=== PATIENT | female | born 1955 | race Caucasian/White ===

== ENCOUNTER 2018-01-16 06:52 | Inpatient (IN) | payer BC ==
--- NOTE | 2018-01-03 16:00 | HP ---
AMENDED REPORT NOW INCLUDES COSIGNER DESIGNATION - ESIGNED BEFORE ADJUSTMENTS HISTORY AND PHYSICAL: DATE OF ADMISSION/SURGERY: 01/16/18 DATE OF HISTORY AND PHYSICAL: 01/03/18 SURGEON: Dr. Johana Bennett.* (DICTATED BY [place] WHYTE) PROCEDURE: Left total knee replacement. CHIEF COMPLAINT: Bilateral knee pain, left greater than right. HISTORY OF PRESENT ILLNESS: Ms. Waters is a 62-year-old female with bilateral knee pain over the last several years, left greater than right pain. This is 5/ 10 aching pain along her joint line. She has tried [id number] NSAIDs, Tylenol, physical therapy and steroid injections with minimal relief of pain. She can no longer walk half a block without severe knee pain. She also reports mild bilateral hip pain today. She also has difficulty with stair climbing and standing from the seated position and due to this at her last appointment she discussed proceeding with a left total knee replacement and she presents today for history and physical for the same. She has had medical clearance by her primary care physician, Miesha Mg, on . She denies any history of herself or immediate family of DVT or PE. She has no history of problems with anesthesia. PAST MEDICAL HISTORY: Includes skin cancer as well as asthma. PAST SURGICAL HISTORY: Left ACL repair, carpal tunnel release of the left metacarpophalangeal surgery, and rhinoplasty. MEDICATIONS: 1. Ibuprofen. 2. Vitamin D. 3. Probiotic. 4. Vitamin C. ALLERGIES: To PENICILLIN. FAMILY MEDICAL HISTORY: Includes CVD, stroke, breast cancer, and asthma. SOCIAL HISTORY: She is a former smoker who stopped 15 years ago, prior to that she had a 30-pack year history. Alcohol, denies. Denies illicit drug use. REVIEW OF SYSTEMS: Positive for presenting complaints as outlined in the HPI as well as the ability to walk a flight of stairs or a city block without chest pain or shortness of breath. Otherwise, a 14-point system review was negative. PHYSICAL EXAMINATION GENERAL: Well-nourished, well-developed 62-year-old female, in no acute distress. Alert and oriented x3 with no gross neurologic deficiencies, ambulating with an antalgic gait favoring the left knee though this is a slowed gait bilaterally. VITAL SIGNS: Height 66 inches, weight 167 pounds, pulse 72, blood pressure 126/ 74, BMI 27. HEENT: Normocephalic, atraumatic. Pupils equally round and reactive to light. Extraocular movements intact. NECK: Supple. No palpable cervical lymph nodes. Her thyroid is smooth and nontender. PULMONARY: Lungs clear to auscultation bilaterally with no wheezes, rales, or rhonchi. CARDIAC: Regular rate and rhythm. No murmurs, rubs, gallops. No pedal edema. MUSCULOSKELETAL: Left lower extremity, skin of left knee is intact with no abrasions or wounds. Moderate to large effusion at the knee joint with tenderness along the medial and lateral joint lines. Range of motion is 15 to 125 degrees of flexion at the knee. No varus or valgus instability. 5/5 ankle dorsiflexion and plantarflexion strength. Full sensation to light touch in all nerve distributions. 2+ palpable DP pulse. IMAGING: Previous views of the left knee show severe end-stage arthritis with medial jzpl-dt-vtkz contact, tricompartmental joint space narrowing, osteophyte formation and subchondral sclerosis. The left knee also shows ACL screws in both the femur and tibia. IMPRESSION: Bilateral knee osteoarthritis. PLAN: Ms. Waters is scheduled to undergo left total knee replacement with Dr. Johana Bennett on 01/16/18. She will return to clinic 10 to 14 days postop for followup and suture removal. Prescription for pain medication as well as Coumadin will be prescribed to the patient's pharmacy of record on discharge from hospital. All questions were answered today. [place] WHYTE [id number]/[facility] #: [id number] CHUCHO
[~2018-01-16 06:52] MED LIST: Acetaminophen IV 1GM/100ML * 1,000 MG/100 ML VIAL IVPB ONE; Buffered Lidocaine 0.9% SYRIN* 5 ML/SYR SYRINGE INTRADERM ONE; Dexamethasone IV* 4 MG/ML 1 ML (4 MG) IV SLOW PU ONE; Famotidine IV* 10 MG/ML 2 ML (20 mg) IV ONE; Gabapentin CAP(*) 300 MG PO ONE; Ondansetron ODT TAB* 4 MG PO ONE; celeCOXIB CAP* 200 MG PO ONE
--- OUTSIDE RECORDS SUMMARY | 2018-01-16 06:58 | XMS REPORT ---
:1955 External Reference #:[id number] Author Organization [facility] Address [address] [address] Phone [phone] Care Team Providers Name Role Phone Miesha Mg PA Primary Care Physician Unavailable Payers Type Date Identification Numbers Payment Provider Subscriber Workers Compensation Expires: Policy Number: State Insurance Mine Waters 2015 [id number] Fund Onset: 2010 PayID: [id number] [address] [address] [place] [address] Medigap Part B Policy Number: [id number] [facility] Mine Waters PayID: [id number] [address] [place] [address] Problems Date Description Provider Status Onset: 11/18/2017 Localized, primary osteoarthritis Johana Bennett M.D. Active Family History Date Family Member(s) Problem(s) Comments General Heart Disease General Diabetes General Cancer Social History Type Date Description Comments Occupation [employer] Use Denies alcohol use Smoking Patient has never smoked Exercise Type/Frequency Exercises regularly Allergies, Adverse Reactions, Alerts Date Description Reaction Status Severity Comments 10/05/2015 Penicillin active Medications Medication Date Status Form Strength Qnty SIG Indications Ordering Provider Ibuprofen 00/00/ Active Unknown 0000 Vitamin D 00/00/ Active Unknown 0000 Probiotic 00/ Active Unknown 0000 Vitamin C 00/ Active Unknown 0000 Cyclobenzaprine 11/18/ Hx Tablets 10mg 30tabs 1 tablet M25.551 Johana HCL 2018 - by mouth Philipp Bennett 01/02/ qhs as 2018 needed muscle spasms [place] 04/30/ Hx Tablets 5-325mg 40tabs one to Chelsey 2016 - two tabema Sagastume M.D. 05/29/ by mouth 2015 every 4-6 hours as needed pain Symbicort / Hx Aerosol 80-4.5mcg/ 2 puff Unknown 0000 - Act twice a 2017 Proair HFA / Hx Aerosol 108(90Base 2 puffs Unknown 0000 - ) mcg/Act by mouth every 4 2018 hours as needed Medications Administered in Office Medication Date Status Form Strength Qnty SIG Indications Ordering Provider Depomedrol Administered Injection Viv 40MG 016 Manpreet RPAMessi Depomedrol Administered Injection Chelsey 40MG 016 Philipp Sagastume Depomedrol Administered Injection Thomas Young, 80MG 011 TiffanyDAdriana Vital Signs Date Vital Result Comment 01/03/2018 Height 66 inches 5'6" Weight 167.00 lb Heart Rate 72 /min BP Systolic 126 mmHg BP Diastolic 74 mmHg BMI (Body Mass Index) 27.0 kg/m2 11/18/2017 Height 66 inches 5'6" Weight 164.00 lb BP Systolic 140 mmHg BP Diastolic 82 mmHg Body Temperature 97.7 F BMI (Body Mass Index) 26.5 kg/m2 06/28/2016 Height 66 inches 5'6" Weight 162.00 lb Pain Level 0 BMI (Body Mass Index) 26.1 kg/m2 05/30/2016 Height 66 inches 5'6" Weight 162.00 lb Pain Level 0 BMI (Body Mass Index) 26.1 kg/m2 04/30/2016 Height 66 inches 5'6" Weight 162.00 lb Heart Rate 80 /min BP Systolic 122 mmHg BP Diastolic 80 mmHg Body Temperature 97.9 F Pain Level 3 BMI (Body Mass Index) 26.1 kg/m2 04/04/2016 Height 66 inches 5'6" Weight 156.00 lb Heart Rate 73 /min BP Systolic 140 mmHg BP Diastolic 76 mmHg BMI (Body Mass Index) 25.2 kg/m2 10/05/2015 Height 66 inches 5'6" Weight 151.00 lb Heart Rate 72 /min BP Systolic Sitting 120 mmHg BP Diastolic Sitting 78 mmHg BMI (Body Mass Index) 24.4 kg/m2 Results Test Date Test Result H/L Range Note Laboratory test 05/18/2016 Surgical Pathology SEE RESULT BELOW 1, 2 finding 1 [id number] 2 SEE RESULT BELOW Name: MINE WATERS : [address]: Chelsey Sagastume MD Acct: [id number] Unit: [id number] AGE: 61 Location: [facility] Re05/18/16 SEX: F Status: REG [facility] SPEC: [id number] GEM: 05/18/[address] [facility] [address]: Chelsey Sagastume MD REQ: [id number] RECD: 05/18/16 STATUS: SOUT _ ORDERED: Rafa, LEVEL III COMMENTS: [id number] FINAL DIAGNOSIS Trapezium, right wrist, excision: -- Benign bone and cartilage with reactive and degenerative change. PRE-OPERATIVE DIAGNOSIS Right thumb carpometacarpal arthritis. GROSS DESCRIPTION The specimen is received in formalin labeled, Trapezium Right Wrist, and consists of a 3.2 x 2.5 x 0.9 cm aggregate of giraldo-white irregular bone fragments. A few of the fragments are partially surfaced by a glistening smooth articular surface. Professor Of Communication sections, one cassette following decalcification. MICROSCOPIC DESCRIPTION Signed (signature on file) Deanna De La Torre MD 1116 END OF REPORT * ML=Testing performed at Main Lab DEPARTMENT OF PATHOLOGY, [address] [place] [address] Hermes Phillip M.D. Director [facility] # [id number] Procedures Date CPT Code Description Status 05/18/2016 83275 Arthroplasty Interposition Intercarpal Or Completed Carpometacarpal JTS 05/18/2016 43646 Arthroplasty Interposition Intercarpal Or Completed Carpometacarpal JTS 04/04/2016 06901 Inject/Drain Joint/Bursa Small Completed 10/05/2015 30101 Inject/Drain Joint/Bursa Small Completed 02/07/2011 56916 Inject Tendon Sheath Or Ligament Aponeurosis Eg Plantar Completed Fascia Encounters Type Date Location Provider CPT E/M Dx Office Visit 11/18/2017 [facility] Johana Bennett M.D. 92142 M25.551 8:45a Of [place] M25.561 M25.562 M17.0 Office Visit 04/04/2016 3:00p [facility] Of [place], 98482 M18.11 [facility]- M79.644 Office Visit 10/05/2015 10:30a [facility] Chelsey Sagastume, 98642 M18.11 Of [facility] [place] Philipp Office Visit 04/18/2011 11:45a [facility] Thomas Newton M.D. 25322 726.0 [facility] Office Visit 03/07/2011 9:45a [facility] Thomas Newton M.D. 21477 726.10 Of [facility] Office Visit 02/07/2011 10:15a [facility] Thomas Newton M.D. 35635 726.12 [facility] Plan of Care Future Appointment(s):01/16/2018 9:30 am - Antoni Sharma PA-C at [facility].01/16/2018 9:30 am - [place] Mitchell at [facility].01/16/2018 9:30 am - Johana Bennett M.D. at [facility].01/27/2018 1:00 pm - Johana Bennett M.D. at [facility].01/03/2018 - Johana Bennett M.D.M25.562 Pain in left kneeFollow up:Follow up: 2 weeks after kuvqszmQ39.0 Bilateral primary osteoarthritis of knee
--- OUTSIDE RECORDS SUMMARY | 2018-01-16 06:59 | XMS REPORT ---
:1955 External Reference #:[id number] Author Organization [facility] Address [address], [address] [place] [address] Phone [phone] Care Team Providers Name Role Phone Miesha Mg PA Care Team Information Floor Coverings Salesperson Unavailable Miesha Mg PA Primary Care Physician Unavailable Payers Type Date Identification Numbers Payment Provider Subscriber Commercial Policy Number: [id number] [facility] [place] PayID: [id number] [address] [place] [address] Problems Date Description Provider Status Onset: 08/03/2003 Localized, primary osteoarthritis Active Onset: 08/03/2003 Chondromalacia of patella Active Family History Date Family Member(s) Problem(s) Comments General Non Contributory : (age 60 Years) Father due to Heart Attack : (age 86 Years) Mother due to Dementia Social History Type Date Description Comments Marital Status Single Lives With Alone Home Environment Lives Alone Diet Healthy, Well Balanced Occupation Retired Occupation Clerical Work Status Retired ADL's/IADL's Independent with all ADL's Cigarette Use Quit Smokeless Tobacco Never Used Smokeless Tobacco ETOH Use Denies alcohol use Smoking Patient is a former smoker 30 pack years QUIT 2006 Recreational Drug Use Denies Drug Use Daily Caffeine Current Caffeine User Daily Caffeine Consumes on average 4 cups of regular coffee per day Allergies, Adverse Reactions, Alerts Date Description Reaction Status Severity Comments 11/19/2013 Penicillins active Medications Medication Date Status Form Strength Qnty SIG Indications Ordering Provider Vitamin C 12/20/ Active 1 po daily [facility] Chewables Conrad Hollingsworth M.D. Ibuprofen 200 05/31/ Active Tablets 200mg 3 po Am, 2 Other 2017 po Provider afternoon Vitamin D 05/31/ Active Tablets 1000Unit 1 by mouth Other 2017 every day Provider Probiotic 05/31/ Active Capsules 30cap 1 by mouth Other 2017 s every day Provider Preparation H 07/11/ Hx Cream 1% 26gm 1tube K64.9 Garry Hydrocortisone 2017 - apply Jodi 12/20/ MD elmo 2018 amount to rectum twice a day Nulytely With 07/11/ Hx Solution 420gm 4000m 1 dose R19.5 Garry Flavor Packs 2017 - Rec l mixed with Jodi 12/20/ water MD 2018 Citrate Of 07/11/ Hx Solution 1.745GM/30 296ml 1 bottle R19.5 Garry Magnesia 2016 - ML at 1pm day Jodi 12/20/ before MD 2018 procedure Dulcolax 07/11/ Hx Tablets DR 5mg 4tabs 4 tablets R19.5 Garry 2017 - taken a Jodi 12/20/ 8pm the MD 2018 day before the procedure Diclofenac 06/17/ Hx Gel 3% 100gm apply to Caprice Sodium 2017 - affected Philipp Hollingsworth 12/20/ area twice 2017 a day Tylenol Extra 05/31/ Hx Tablets 500mg 1 tab by M25.551 Caprice Strength 2017 - mouth Philipp Hollingsworth 07/01/ every 6 2017 hours as needed Meloxicam 04/27/ Hx Tablets 15mg 30tab 1 by mouth Tip 2013 - s every day Juan, 09/19/ kerrie olson M.D. 2016 Ibuprofen 11/04/ Hx Tablets 800mg 270ta 1 by mouth Rich 2011 - bs higinio Wylie MD 06/21/ times a 2014 day after meals Ibuprofen / Hx Tablets 800mg 270ta 1 po tid Geovanni Posey 0000 - bs angela Dawn, 04/27/ Philipp, 2013 FACS Asmanex 60 / Hx Aerosol 220mcg/Inh Unknown Metered Doses - 2014 Ventolin HFA / Hx Aerosol 108(90Base prn Unknown 0000 - ) mcg/Act 2014 Pulmicort / Hx Aerosol 90mcg/Act Unknown Flexhaler - 2014 Tylenol / Hx Tablets 325mg 2 by mouth Unknown 0000 - every 4 05/31/ hours as 2017 needed Medications Administered in Office Medication Date Status Form Strength Qnty SIG Indications Ordering Provider Depomedrol 80 Administered Injection Juliana S. mg 016 [place], [facility] Depomedrol Administered Injection Juliana S. 40mg/1cc 016 [place], [facility] Depo-Medrol Administered Injection Juliana S. 20mg 015 [place], [facility] Depomedrol 80 Administered Injection Juliana S. mg 015 [place], [facility] Euflexxa 2mL Administered Injection Juliana S. prefilled 014 [place], syringe [facility] Euflexxa 2mL Administered Injection Juliana S. prefilled 014 [place], syringe [facility] Euflexxa 2mL Administered Injection Juliana S. prefilled 014 [place], syringe [facility] Depomedrol 80 Administered Injection Juliana S. mg 014 [place], [facility] Immunizations CPT Code Status Date Vaccine Lot # 29073 Given 05/31/2017 Influenza Virus Vaccine Quadrivalent Iiv4 Split Preser Free Id U-Td Given 11/10/2013 Td(Adult),Unspecified U-PneuC Given 05/28/2008 Pneumococcal Conj,Unspecified Vital Signs Date Vital Result Comment 12/20/2017 BP Systolic Sitting Right Arm 138 mmHg BP Diastolic Sitting Right Arm 80 mmHg Body Temperature 98.1 F Heart Rate 72 /min Height 66 inches 5'6" Weight 167.12 lb BMI (Body Mass Index) 27.0 kg/m2 BSA (Body Surface Area) 1.85 m2 [place] body weight in kilograms 59 O2 Saturation Level with Exercise 96 % 07/11/2017 BP Systolic Sitting Left Arm 124 mmHg BP Diastolic Sitting Left Arm 82 mmHg Heart Rate 66 /min Respiratory Rate 16 /min Height 66.5 inches 5'6.50" Weight 165.00 lb BMI (Body Mass Index) 26.2 kg/m2 BSA (Body Surface Area) 1.85 m2 [place] body weight in kilograms 60 07/01/2017 BP Systolic 138 mmHg BP Diastolic 80 mmHg Body Temperature 98.4 F Heart Rate 79 /min Height 66.5 inches 5'6.50" Weight 163.00 lb BMI (Body Mass Index) 25.9 kg/m2 BSA (Body Surface Area) 1.84 m2 [place] body weight in kilograms 60 05/31/2017 BP Systolic 172 mmHg BP Diastolic 96 mmHg BP Systolic Sitting Right Arm 152 mmHg repeat BP Diastolic Sitting Right Arm 90 mmHg repeat Heart Rate 80 /min Height 66.5 inches 5'6.50" Weight 162.25 lb BMI (Body Mass Index) 25.8 kg/m2 BSA (Body Surface Area) 1.84 m2 [place] body weight in kilograms 60 06/21/2015 BP Systolic Sitting Left Arm 142 mmHg BP Diastolic Sitting Left Arm 81 mmHg Heart Rate 69 /min Height 66.5 inches 5'6.50" Weight 152.00 lb BMI (Body Mass Index) 24.2 kg/m2 BSA (Body Surface Area) 1.79 m2 11/19/2013 BP Systolic Sitting Left Arm 98 mmHg BP Diastolic Sitting Left Arm 60 mmHg Height 65 inches 5'5" Weight 155.00 lb BMI (Body Mass Index) 25.8 kg/m2 BSA (Body Surface Area) 1.78 m2 05/14/2012 Height 65 inches 5'5" Weight 161.00 lb 11/05/2011 Height 66 inches 5'6" Weight 170.00 lb 10/09/2010 Height 65.5 inches 5'5.50" Weight 167.00 lb 02/28/2010 Height 68.5 inches 5'8.50" Weight 176.00 lb With Shoes 11/05/2007 Height 66 inches 5'6" Weight 172.00 lb 05/07/2007 Height 67 inches 5'7" Weight 166.00 lb 01/17/2007 Height 66 inches 5'6" Weight 164.00 lb 04/03/2006 Height 66 inches 5'6" Weight 173.00 lb 07/26/2005 Height 66 inches 5'6" Weight 170.00 lb 01/31/2005 Height 66 inches 5'6" Weight 174.00 lb Results Test Date Test Result H/L Range Note HPV High Risk 07/01/2017 HPV High Risk Results on file 1, 2 CBS W/Automated Diff 06/03/2017 White Blood Count 3.1 K/uL 3.1-10.7 3 Red Blood Count 4.31 M/uL 3.90-5.40 3 Hemoglobin 13.8 gm/dL 11.6-15.8 3 Hematocrit 40.3 % 36.0-46.1 3 Mean Cell Volume 93.5 fl 80.9-99.0 3 Mean Corpuscular HGB 32.0 pg 25.9-32.7 3 Mean Corpuscular HGB Conc 34.2 g/dL 30.8-34.3 3 Platelet Count 204 K/uL 150-400 3 Red Cell Distri Width SD 41.2 fl 3-47 3 Red Cell Distri Width %CV 12.3 % 11.7-14.4 3 Mean Platelet Volume 11.1 fL 8.9-12.4 3 Neut% 38.0 % Low 40.4-72.8 3 Lymph % 44.2 % High 20.0-42.0 3 [place] % 14.6 % High 4.3-13.2 3 Eo% 2.9 % 0.0-6.6 3 Bas% 0.3 % 0.0-1.1 3 Neut# 1.17 K/uL Low 1.8-7.0 3 Lymph # 1.36 K/uL 1.0-4.0 3 [place] # 0.45 K/uL 0.3-0.9 3 Eos # 0.09 K/uL 0.0-0.5 3 Baso # 0.01 K/uL 0.0-0.1 3 LDL Cholesterol Profile 06/03/2017 Cholesterol 241 mg/dL High <200 3, 4 Triglycerides 92 mg/dL <150 3, 5 HDL Cholesterol 102 mg/dL >40 3, 6 LDL-Cholesterol 121 mg/dL < 100 3, 7 Reflex add FT3? N 3 Reflex add FT4? Y 3 TSH Reflex FT4 And/Or 06/03/2017 Thyroid Stim Hormone 7.50 uIU/mL High 0.30-4.20 3 FT3 Reflex add FT3? N 3 Reflex add FT4? Y 3 Comprehensive Metabolic Panel 06/03/2017 Glucose 79 mg/dL 74-106 3 BUN 16 mg/dL 7-18 3 Creatinine 0.7 mg/dL 0.6-1.3 3 Glom Filtration Rate, Estimate >60 mL/min >60 3 If >60 mL/min >60 3, 8 BUN/Creat 22.8 ratio 3 Sodium 141 mmol/L 136-145 3 Potassium 4.0 mmol/L 3.5-5.1 3 Chloride 107 mmol/L 98-107 3 Carbon Dioxide 29 mmol/L 21-32 3 Anion Gap 5 mEq/L Low 8-16 3 Calcium 9.3 mg/dL 8.5-10.1 3 Total Protein 7.4 g/dL 6.4-8.2 3 Albumin 3.9 g/dL 3.4-5.0 3 Globulin 3.5 g/dL 1.9-4.3 3 Alb/Glob 1.1 ratio 3 Bilirubin,Total 0.4 mg/dL 0.2-1.0 3 Sgot/Ast 20 U/L 15-37 3 SGPT/Alt 24 U/L 12-78 3 Alkaline Phosphatase 61 U/L 45-117 3 Reflex add FT3? N 3 Reflex add FT4? Y 3 Free T4 06/03/2017 Free T4 0.97 ng/dL 0.76-1.46 3 Reflex add FT3? N 3 Reflex add FT4? Y 3 BUN And Creatinine 08/30/2006 BUN 18 mg/dL 5-23 Creatinine 1.0 mg/dL 0.5-1.4 Laboratory test finding 08/30/2006 Albumin 4.3 g/dL 3.5-5.0 Alkaline Phosphatase 57 U/L 50-136 Bilirubin,Direct 0.1 mg/dL 0.1-0.4 Bilirubin,Indirect 0.3 mg/dL 0.0-0.9 Bilirubin,Total 0.4 mg/dL 0.2-1.2 SGPT/Alt 42 U/L 30-65 Sgot/Ast 24 U/L 16-40 Total Protein 7.6 g/dL 6.3-8.0 Urine Screen 05/22/2006 Urine Bilirubin - Dipstick Negative Negative Urine Blood Negative Negative Urine Clarity Clear Clear Urine Color Yellow Yellow Urine Glucose - Dipstick Negative Negative m Urine Ketone Negative Negative m Urine Leuk Esterase Negative Negative Urine Nitrite - Dipstick Negative Negative Urine PH 6.5 6.5-7.5 Urine Protein - Dipstick Negative Negative m Urine Specific [place] 1.010 1.010-1.030 Urine Urobilinogen - Dipstick 0.2 E.U./dL 0.2-1.0 Laboratory test finding 05/22/2006 Bas% 0.6 % 0.1-1.0 Baso # 0.0 K/uL Low 0.1-0.2 Eo% 2.5 % 0.0-5.0 Eos # 0.1 K/uL 0.0-0.5 Hematocrit 41.3 % 34.0-46.0 Hemoglobin 14.5 gm/dL 11.5-15.5 Bj# 0.1 0.0-1.5 Bj% 2.3 % 0.0-4.0 Lymph # 2.0 K/uL 1.2-4.0 Lymph % 36.9 % 17.0-56.0 Mean Cell Volume 91.8 fL 80.0-96.0 Mean Corpuscular HGB 32.2 pg 27.0-33.0 Mean Corpuscular HGB Conc 35.1 g/dL 31.7-36.0 Mean Platelet Volume 7.8 fl 6.6-10.6 [place] # 0.3 K/uL 0.0-0.6 [place] % 4.9 % 0.0-10.0 Neut# 2.9 K/uL 1.8-7.0 Neut% 52.8 % 33.0-73.0 Platelet Count 326 K/uL 150-400 Red Blood Count 4.50 M/uL 3.90-5.20 Red Cell Distri Width %CV 12.6 % 11.6-15.8 White Blood Count 5.5 K/uL 3.4-10.5 BUN And Creatinine 03/05/2006 BUN 14 mg/dL 5-23 9 Creatinine 0.9 mg/dL 0.5-1.4 9 Laboratory test finding 03/05/2006 Albumin 3.8 g/dL 3.5-5.0 9 Alkaline Phosphatase 50 U/L 50-136 9 Bilirubin,Direct 0.1 mg/dL 0.1-0.4 9 Bilirubin,Indirect 0.2 mg/dL 0.0-0.9 9 Bilirubin,Total 0.3 mg/dL 0.2-1.2 9 SGPT/Alt 36 U/L 30-65 9 Sgot/Ast 19 U/L 16-40 9 Total Protein 7.0 g/dL 6.3-8.0 9 1 Z12.4 2 Hard copy of report to be sent by mail Report may be viewed in Clinical Review, or in PCI under Medical Record Forms 3 Z47.123 4 Reference Guidelines*: Desirable: ........... < 200 mg/dL Borderline High: ..... 200-239 mg/dL High: ................ >=240 mg/dL * The National Cholesterol Education Program (NCEP) 5 Reference Guidelines*: Normal: ............. < 150 mg/dL Borderline High: .... 150-199 mg/dL High: ............... 200-499 mg/dL Very High: .......... > 500 mg/dL * Source: National Cholesterol Education Program (NCEP) 6 Reference Guidelines*: Low HDL: ..... < 40 mg/dL Normal: ..... 40-60 mg/dL Desirable: ... > 60 mg/dL *The National Cholesterol Education Program(NCEP) 7 Reference Guidelines*: Optimal:........... <100 mg/dL Near Optimal....... 100-129 mg/dL Borderline High.... 130-159 mg/dL High............... 160-189 mg/dL Very High.......... >=190 mg/dL * Source: National Cholesterol Education Program (NCEP) 8 Note: Persistent reduction for 3 months or more in an eGFR <60 mL/min/1.73 m2 defines CKD. Patients with eGFR values >/=60 mL/min/1.73 m2 may also have CKD if evidence of persistent proteinuria is present. The original MDRD equation for estimated GFR is not valid for patients less than 18 years of age. Additional information may be found at www.kdoqi.org. 9 spoke with pt 03/07 ds Procedures Date CPT Code Description Status Comment 12/04/2017 Bone Mineral Density Test Completed Osteopenia-Repeat 2 years in 201907/29/2017 91149 Colonoscopy Completed 07/17/2016 Mammogram Completed Birads 2-Benign 11/27 Birads 2-Benign, Dense. Repeat in 12 months. 06/25/2016 Asp./Injection major joint Completed 06/25/2016 Asp./Injection major joint Completed 06/25/2016 30881 Radiology, Both Knees Completed Standing 06/25/2016 00185 Radiology, Both Knees Completed Standing 06/25/2016 93437 Radiology, Distal Completed Femur--Knee 1 Or 2 Views 06/25/2016 75351 Radiology, Distal Completed Femur--Knee 1 Or 2 Views 09/19/2015 69483 Radiology, Hand: Minimum Completed Three Views 06/21/2015 80692 Radiology, Finger(S), Two Completed Views 06/21/2015 90335 Radiology, Finger(S), Two Completed Views 06/21/2015 44285 Aspiration/Injection joint Completed intermediate(wrist/ankle/elb ow/olbursa 10/28/201435226 Asp./Injection major joint Completed 10/28/2014 Asp./Injection major joint Completed 05/18/2014 Asp./Injection major joint Completed 05/12/2014 Asp./Injection major joint Completed 05/05/2014 Asp./Injection major joint Completed 04/27/2014 11744 Radiology, Knee 3 Views Completed 04/27/2014 40603 Radiology, Knee 3 Views Completed 11/19/201372181 Asp./Injection major joint Completed 11/19/201326167 Asp./Injection major joint Completed 10/03/2012 Colonoscopy Completed Document: 10/03/12 - Operative Colon & BX Document: 10/03/12 - Colonoscopy Pictures 07/29/2018-Dr. Zapata-Negative. 05/14/2012 Asp./Injection major joint Completed 12/19/2011 Asp./Injection major joint Completed 11/15/2011 Asp./Injection major joint Completed 11/05/2011 Asp./Injection major joint Completed 01/16/2011 Asp./Injection major joint Completed 12/19/2010 Asp./Injection major joint Completed 02/28/2010 Asp./Injection major joint Completed 06/04/2007 0000 Due To Insurance Completed 01/30/2007 Asp./Injection major joint Completed 01/24/2007 Asp./Injection major joint Completed 01/17/2007 Asp./Injection major joint Completed 01/10/2007 Asp./Injection major joint Completed 01/03/2007 Asp./Injection major joint Completed 08/28/2006 Asp./Injection major joint Completed 05/27/2006 45542 Arthroscopic anterior Completed cruciate ligment repair/reconstruct/augment 01/30/2006 Asp/Injection small Completed joint/bursa (ie-fingers,toes) 05/30/2005 Asp/Injection small Completed joint/bursa (ie-fingers,toes) 04/24/2005 Asp/Injection small Completed joint/bursa (ie-fingers,toes) 02/22/2005 Colonoscopy Completed Document: 02/22/05 - Operative Colon 12/13/2004 Asp./Injection major joint Completed 07/18/2004 Aspiration/Injection joint Completed intermediate(wrist/ankle/elb ow/olbursa 12/15/2003 Asp./Injection major joint Completed Encounters Type Date Location Provider CPT E/M Dx Office Visit 07/11/2017 9:[place] [address] R19.5 K64.9 Office Visit 07/01/2017 8:30a [place] [address] Z00.01 M17.0 Z12.31 Z12.4 Z13.820 Z12.11 R03.0 M25.551 Office Visit 05/31/2017 3:15p [place] [address] M25.551 G47.9 Z23 R03.0 Z13.220 Office Visit 06/25/2016 2:45p Orthopaedic Office Juliana [facility] [address]131 M17.0 M25.562 M25.561 Office Visit 09/19/2015 2:00p Orthopaedic Office Mario Schilling M.D. 14768 M19.041 Office Visit 06/21/2015 2:15p Orthopaedic Office [place] [address] M79.641 [facility] M19.041 Office Visit 06/07/2014 9:00a Orthopaedic Office [place] 30503 719.46 RPAC 719.06 715.16 844.2 Office Visit 05/26/2014 3:00p Orthopaedic Office Julinaa [place] 86440 719.46 RPAC 719.06 Office Visit 04/27/2014 1:30p Orthopaedic Office [place] 26906 715.16 RPAC 719.46 Office Visit 06/14/2006 8:40a Operating Room Helder Temple M.D. 87740 238.2 Office Visit 05/24/2006 8:40a Operating Room Helder Temple M.D. 59742 238.2 Plan of Care 12/20/2017 - Miesha Mg PAZ01.818 Encounter for other preprocedural examinationComments:Patient is cleared for procedure. Low risk for general anesthesia.M17.0 Bilateral primary osteoarthritis of kneeComments:Keep as active as you can leading up to surgery. Please call if you have any concerns. Otherwise, wewill follow up in the fall.Follow up:4 gocnxfM67.6 Abnormal results of thyroid function studiesComments:Repeat Thyroid function studies.AllNew Medication:Vitamin C Chewables
[2018-01-16] MEDS ORDERED: Dexamethasone IV* 4 MG/ML 1 ML (4 MG) ONE (07:27)
[2018-01-16] MEDS ORDERED: Famotidine IV* 10 MG/ML 2 ML (20 mg) ONE (07:27)
[2018-01-16] MEDS ORDERED: Gabapentin CAP(*) 300 MG ONE (07:28)
[2018-01-16] MEDS ORDERED: Ondansetron ODT TAB* 4 MG ONE (07:28)
[2018-01-16] MEDS ORDERED: Clindamycin 900 MG IVPREMIX(* 900 MG/50 ML SDV IV ONE (07:28)
[2018-01-16] MEDS ORDERED: celeCOXIB CAP* 100 MG ONE (07:28)
[2018-01-16] MEDS ORDERED: Acetaminophen IV 1GM/100ML * 100 ML ONE (07:42)
[2018-01-16] MEDS ORDERED: Bupivacaine 0.5% PF 10 ML VIAL INJ ONE (08:21)
[2018-01-16] MEDS ORDERED: Phenylephrine INJ* 10 MG/ML 1 ML VIAL (10 MG) ONE (08:21)
[2018-01-16] MEDS ORDERED: Propofol* 10 MG/ML 20 ML BTL IV PUSH ONE ×2 (08:21→10:28)
[2018-01-16] MEDS ORDERED: fentaNYL* 50 MCG/ML 2 ML VIAL (100 MCG VIAL) ONE (08:21)
[2018-01-16] MEDS ORDERED: Midazolam* 1 MG/ML 5 ML VIAL (5 MG) ONE ×2 (08:21→09:27)
[2018-01-16] MEDS ORDERED: Lidocaine 0.5%* 50 ML SDV ONE (08:21)
[2018-01-16] MEDS ORDERED: ROPIVACAINE 5 MG/ML 30 ML BTL (0.5%) ONE (08:42)
[2018-01-16] MEDS ORDERED: Bupivacaine 0.25% SDV* 30 ML ONE (08:52)
[2018-01-16] MEDS ORDERED: Lidocaine 2% PF * 5 ML VIAL ONE (09:28)
[2018-01-16] MEDS ORDERED: HYDROmorphone INJ* 1 MG/ML CARPUJECT SYRINGE IV PRN (09:58)
[2018-01-16] MEDS ORDERED: Ondansetron INJ* 2 MG/ML VIAL IV PRN (09:58)
[2018-01-16] MEDS ORDERED: Naloxone* 0.4 MG/ML 1 ML VIAL IV PRN (09:58)
[2018-01-16] MEDS ORDERED: oxyCODONE/Acetamin 5/325 MG* TAB PO PRN ×2 (09:58→12:21)
[2018-01-16] MEDS ORDERED: DiMENhydriNATE IV* 50 MG/ML VIAL IV PUSH PRN (09:58)
[2018-01-16] MEDS ORDERED: fentaNYL* 50 MCG/ML 2 ML VIAL (100 MCG VIAL) IV PRN (09:58)
[2018-01-16] MEDS ORDERED: diPHENhydraMINE IV* 50 MG/ML 1 ml VIAL (BENADRYL) IV PRN (12:21)
[2018-01-16] MEDS ORDERED: Cyclobenzaprine TAB* 10 MG PO PRN (12:21)
[2018-01-16] MEDS ORDERED: Magnesium Hydroxide LIQ* 30 ML UDC PO PRN (12:21)
[2018-01-16] MEDS ORDERED: Bisacodyl SUPP* 10 MG SUPP PR PRN (12:21)
--- NOTE | 2018-01-16 13:22 | RAD ---
INDICATION: Status post total left knee replacement surgery. TECHNIQUE: 2 views of the left knee were obtained. FINDINGS: The patient is status post total left knee replacement surgery. The bones and prostheses are in normal alignment. There is air within the adjacent soft tissues consistent with the patient's recent surgery. IMPRESSION: STATUS POST TOTAL LEFT KNEE REPLACEMENT SURGERY.
[2018-01-16] MEDS: oxyCODONE/Acetamin 5/325 MG* TAB PO PRN ×2 (15:25→20:52)
[2018-01-16] MEDS ORDERED: Ondansetron 40 MG VIAL* 2 MG/ML 20 ML VIAL IV PRN (16:50)
[2018-01-16] MEDS ORDERED: Warfarin TAB(*) 6 MG PO ONE (17:00)
[2018-01-16] MEDS: Clindamycin 600 MG IVPREMIX(* 600 MG/50 ML SDV IV SCH (18:05)
[2018-01-16] MEDS: oxyCODONE TAB* 5 MG TAB PO PRN ×2 (18:43→22:52)
[2018-01-16] MEDS: Morphine VIAL* 4 MG/ML VIAL (1 ml vial) IV PRN ×2 (19:18→23:55)
[2018-01-16] MEDS: Docusate CAP* 100 MG PO SCH (20:52)
[2018-01-16] MEDS: Magnesium Hydroxide LIQ* 30 ML UDC PO SCH (20:53)
[2018-01-17] MEDS ORDERED: HYDROmorphone INJ* 2 MG/ML CARPUJECT SYRINGE IV PRN (00:29)
[2018-01-17] MEDS: Ketorolac INJ* 15 MG/ML 1 ML VIAL IV PUSH SCH ×4 (00:48→18:34)
[2018-01-17] MEDS: oxyCODONE/Acetamin 5/325 MG* TAB PO PRN ×6 (00:49→22:15)
[2018-01-17] MEDS: Clindamycin 600 MG IVPREMIX(* 600 MG/50 ML SDV IV SCH ×2 (00:50→09:18)
[2018-01-17] MEDS: oxyCODONE TAB* 5 MG TAB PO PRN ×5 (02:51→19:47)
[2018-01-17 05:45] LABS: Hematocrit 29 % (35-47); Hemoglobin 10.2 g/dl (12.0-16.0); Mean Platelet Volume 8.2 um3 (7.4-10.4); Platelet Count 167 10^3/ul (150-450)
[2018-01-17 05:55] LABS: INR 0.91 (0.77-1.02)
[2018-01-17 06:08] LABS: EGFR Non-African American 84.5 (>60)
[2018-01-17] MEDS: Magnesium Hydroxide LIQ* 30 ML UDC PO SCH ×2 (07:12→19:47)
[2018-01-17] MEDS: Docusate CAP* 100 MG PO SCH ×2 (07:12→19:47)
[2018-01-17] MEDS: Vitamin THERAPEUTIC TAB PO SCH (07:12)
[2018-01-17] MEDS: Enoxaparin(*) 30 MG/0.3 ML SYR SUBCUT SCH (13:26)
[2018-01-17] MEDS ORDERED: Warfarin TAB(*) 4 MG PO ONE (17:00)
--- NOTE | 2018-01-17 17:31 | OP ---
OPERATIVE NOTE: DATE OF OPERATION: 01/16/18 DATE OF : 53 ATTENDING SURGEON: Johana Bennett MD. AUTOMATION SALES MANAGER: KY Snyder. Mr. Sharma did help throughout the procedure with preparation of the leg, wound retraction, manipulat ion of the knee, and wound closure. ANESTHESIOLOGIST: Dr. Larsen. ANESTHESIA: Spinal. 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 OPERATIVE PROCEDURE: Left total knee arthroplasty with removal of prior hardware. TOURNIQUET TIME: 58 minutes. COMPLICATIONS: None. SPECIMENS: Bone and cartilage from the left knee joint sent to Pathology as well as 2 metal interfer ence screws, one removed from the femur and one removed from the tibia. ESTIMATED BLOOD LOSS: 300 cc. HARDWARE USED: This is a cemented [employer]hew total knee arthroplasty hardware. Two packages o f Simplex bone cement. For the femur, a left size 5 posterior stabilized Legion Oxinium femoral comp onent. For the tibia, a size 4 left tibial base plate, type Kiara II. For the insert, a 9-mm post erior stabilized articular insert size 3-4. For the patella, a 32-mm 3-peg all poly patella with 7.5 thickness. BRIEF HISTORY/INDICATION: Ms. Waters is a 62-year-old female with a chronic history of left knee thalia n. She did have ACL reconstruction in the past. Over the years, she developed increasingly severe p ain in the left knee. Radiographs showed ypid-sa-raht arthritis. The patient failed conservative tr eatment with antiinflammatories, pain medication, intraarticular injections, and physical therapy. S he elected to undergo left total knee arthroplasty due to continued pain and decreased quality of lif e. Informed consent was obtained from the patient. She understood the risks of surgery included but were not limited to bleeding, infection, damage to nearby structures, continued pain, need for furthe r surgery, intraoperative fracture, nerve palsy, hardware failure or loosening, knee stiffness, loss of motion, stroke, heart attack, blood clot, and . She had a real risk of intraoperative fractu re due to these 2 prior interference screws, as they are placed within the bone. She wished to proce ed and accept these risks. INTRAOPERATIVE FINDINGS: Intraoperatively, the patient was noted to have osteopenia. She had tricom partmental full thickness loss of cartilage and advanced posttraumatic arthritis. The femoral screw was posterior and lateral. This was removed during reaming of the box for the posterior stabilized i mplant. The proximal tibial screw was removed during preparation of the proximal tibia for placement of the implant. No intraoperative periprosthetic fractures were noted. DESCRIPTION OF PROCEDURE: Ms. Waters was identified in the preanesthesia unit. Her left lower extrem ity was marked as the correct operative side. Informed consent was signed and placed in the chart. The patient was taken to the operating room and placed under spinal anesthesia without difficulty. F oley catheter was placed. Tourniquet was placed on the left thigh. Left lower extremity was prepped and draped in the usual sterile fashion. Preop time-out was made to correctly identify the patient's side and site. Appropriate perioperative antibiotics were given within 1 hour of incision. Tourniquet was inflated and total tourniquet time for this procedure was 58 minutes. A 12-cm midline incision was made using the patient's prior distal medial incision. A 10 blade was used to sharply dissect down to the extensor mechanism. A new 10 blade was used to make a standard medial parapatella r arthrotomy. The patella was subluxed laterally. Electrocautery was used to subperiosteally elevat e the soft tissue off the superomedial tibia to the mid sagittal plane. The knee was flexed up. Ther e was no visible ACL. Anterior horn of the lateral meniscus was released. A drill was used to enter the distal femur. Intramedullary distal femoral cutting guide was pinned on the distal femur. Osci llating saw was used to make the distal femoral cut. Next, the external rotation guide was pinned on the distal femur. Distal femur was sized to a size 5. Size 5 multi-cutting jig was pinned on the d istal femur. Oscillating saw was used to make the 4 distal femoral chamfer cuts. Next, the PCL was completely released. Tibia was subluxed anteriorly. Extramedullary tibial cutting guide was pinned on the proximal tibia. Oscillating saw was used to make the proximal tibial cut. T he interference screw was encountered. A screwdriver was used to remove the interference screw from the proximal tibia. The knee was brought out into full extension. Bone was carefully removed. Spac er block had good fit with the knee in full extension. Medial and lateral ligaments were well balanc ed. Flexion and extension gaps were well balanced. The knee was flexed up. Lamina knife sharpener was rosita maggy both medially and laterally. Any remaining meniscus was carefully removed using electrocautery. Curved osteotome was used to remove any posterior osteophytes. Tibial tray and drop erika confirmed a satisfactory tibial cut. Next, the left size 5 femoral trial was impacted onto the distal femur. The box for the posterior st abilized implant was prepared using a reamer and box cut osteotome. During placement of the reamer, the distance was met. At this point, the distal femoral interference screw was identified and remove d using a screwdriver. The size 4 tibial tray trial with a 9-mm insert trial was placed, and the kne e was taken through a range of motion. The knee had full extension to 130 degrees of flexion with sa tisfactory patellofemoral tracking. Patella was everted. 7 mm of patellar bone and cartilage was car efully removed using an oscillating saw. The patella was sized to a size 32. Three peg holes were dr illed to the size 32 guide. A trial 32 patella with 7.5 thickness was placed and the knee was taken through a range of motion. There was satisfactory patellofemoral tracking. All trials were carefully removed. The tibia was subluxed anteriorly and sized to a size 4. Proximal tibia was prepared usin g a size 4 keel punch. All bony cut surfaces were copiously irrigated with sterile saline and dried. Final implants were cemented into place starting with the tibia, followed by the femur and last, th e patella. A 9-mm insert trial was placed while the knee was brought out into full extension. Tourn iquet was turned down at 58 minutes. The knee was copiously irrigated with sterile saline. Electrocautery was used to obtain meticulous h emostasis. Once the cement had fully cured, the insert trial was removed. Any excess cement was rem leno from around the capsule and hardware. A 9-mm posterior stabilized articular insert, size 3-4, wa s chosen as the final insert. This was locked into the tibial tray without difficulty. Stability of the insert was checked and rechecked and noted to be stable. The knee was once again copiously irrigated with sterile saline. The extensor mechanism was closed o sergio a medium Hemovac drain using interrupted #1 Vicryls. The rest of the incision was closed in a la yered fashion using 0 and 2-0 Vicryls. Skin was closed using running 3-0 nylon suture. Sterile Xero form, 4x4s, and Webril were used to cover the incision. [place] wrap and cold pack were placed over this . The patient's anesthesia was reversed without difficulty. She was taken to the PACU in stable con dition. Intended weightbearing will be weightbearing as tolerated. Intended DVT prophylaxis will be Coumadin with a Lovenox bridge. [id number]/[facility] #: [id number]
--- NOTE | 2018-01-17 22:32 | PN ---
Progress Note - Progress Note Date of Service: 01/17/18 SOAP: Subjective: 62 y/o female s/p L TKA with removal of hardware by Dr. Bennett 01/16/2018. Patient reports feeling well, pain but controlled moderately with PO pain meds. Working well with PT. VSS, afebrile overnight. Objective: General- Well appearing, NAD, AO resting in chair comfortably MSK- LLE- DF/PF = b/l, PT 2+, negative homans sign surgical dressing intact, no drainage, odor noted, no erytehma, SITLT Vital Signs Temp 97.8 F 01/17/18 15:29 Pulse 72 01/17/18 15:29 Resp 16 01/17/18 22:16 BP 109/59 01/17/18 15:29 Pulse Ox 98 01/17/18 16:00 Intake & Output 01/17/18 01/17/18 01/18/18 06:59 18:59 06:59 Intake Total 1235 2042 Output Total 900 1225 Balance 335 817 Intake: IV Fluids 985 1270 LR 985 1270 IVPB 50 52 ABX - CLINDAMYCIN 50 52 Oral 200 720 Output: Urine 1225 Rosas 900 Assessment: Stable 62 y/o female s/p L TKA with removal of hardware by Dr. Bennett 01/16/2018. Plan: - DVT prophylaxis- lovenox, coumadin - Continue PT/ OT - Follow up with Dr. Bennett within 10-14 days - H&H - stable - post-op IV ABX - completed - Possible D/c home tomorrow Bisacodyl (Dulcolax Supp*) 10 mg ME DAILY PRN PRN Reason: constipation Cyclobenzaprine HCl (Flexeril Tab*) 5 mg PO TID PRN PRN Reason: SPASMS Last Admin: 01/16/18 20:53 Dose: 5 mg Diphenhydramine HCl (Benadryl Iv*) 25 mg IV Q6H PRN PRN Reason: itching Docusate Sodium (Colace Cap*) 100 mg PO BID [facility] Last Admin: 01/17/18 19:47 Dose: 100 mg Enoxaparin Sodium (Lovenox(*)) 30 mg SUBCUT Q24H [facility] Last Admin: 01/17/18 13:26 Dose: 30 mg Hydromorphone HCl (Dilaudid Inj*) 0.5 mg IV Q2H PRN PRN Reason: PAIN SEVERE Lactated Ringer's (Lactated Ringers 1000 Ml Bag*) 1,000 mls @ 100 mls/hr IV PER RATE [facility] Last Admin: 01/17/18 07:11 Dose: 100 mls/hr Lactulose (Lactulose*) 30 ml PO Q6H PRN PRN Reason: constipation Magnesium Hydroxide (Milk Of Magnesia Liq*) 30 ml PO BID [facility] Last Admin: 01/17/18 19:47 Dose: 30 ml Magnesium Hydroxide (Milk Of Magnesia Liq*) 30 ml PO Q6H PRN PRN Reason: constipation Multivitamins (Theragran Tab*) 1 tab PO DAILY [facility] Last Admin: 01/17/18 07:12 Dose: 1 tab Ondansetron HCl (Zofran 40 Mg Vial*) 4 mg IV Q4H PRN PRN Reason: NAUSEA Last Admin: 01/16/18 17:22 Dose: 4 mg Oxycodone HCl (Roxycodone Tab*) 10 mg PO Q4H PRN PRN Reason: PAIN - SEVERE Last Admin: 01/17/18 19:47 Dose: 10 mg Oxycodone/Acetaminophen (Percocet 5/325 Tab*) 2 tab PO Q4H PRN PRN Reason: PAIN Last Admin: 01/17/18 22:15 Dose: 2 tab Oxycodone/Acetaminophen (Percocet 5/325 Tab*) 1 tab PO Q4H PRN PRN Reason: PAIN Pharmacy Profile Note (Coumadin Daily Reminder*) 1 note FOLLOW UP 1700 [facility] Last Admin: 01/17/18 16:45 Dose: 1 note
[2018-01-18] MEDS: oxyCODONE/Acetamin 5/325 MG* TAB PO PRN ×3 (02:55→13:31)
[2018-01-18] MEDS: oxyCODONE TAB* 5 MG TAB PO PRN ×3 (05:16→10:12)
[2018-01-18 05:31] LABS: Hematocrit 27 % (35-47); Hemoglobin 9.5 g/dl (12.0-16.0); Mean Platelet Volume 8.5 um3 (7.4-10.4); Platelet Count 138 10^3/ul (150-450)
[2018-01-18 05:40] LABS: INR 1.18 (0.77-1.02)
[2018-01-18] MEDS: Vitamin THERAPEUTIC TAB PO SCH (10:12)
[2018-01-18] MEDS: Magnesium Hydroxide LIQ* 30 ML UDC PO SCH (10:12)
[2018-01-18] MEDS: Docusate CAP* 100 MG PO SCH (10:12)
[2018-01-18] MEDS: Enoxaparin(*) 30 MG/0.3 ML SYR SUBCUT SCH (13:32)
[2018-01-18 15:04] VITALS: BP 135/68
--- NOTE | 2018-01-18 15:31 | PN ---
Progress Note - Progress Note Date of Service: 01/18/18 SOAP: Subjective: 62 y/o female s/p L TKA with removal of hardware by Dr. Bennett 01/16/2018. Patient reports feeling well, pain well controlled. Working well with PT. VSS, afebrile overnight. Objective: Vital Signs Temp 98.3 F 01/18/18 11:37 Pulse 84 01/18/18 11:37 Resp 16 01/18/18 13:31 BP 135/68 01/18/18 11:37 Pulse Ox 95 01/18/18 11:37 Intake & Output 01/17/18 01/18/18 01/18/18 18:59 06:59 18:59 Intake Total 2042 900 540 Output Total 1427 103 5581 Balance 817 200 -1210 Intake: IV Fluids 1270 LR 1270 IVPB 52 ABX - CLINDAMYCIN 52 Oral 720 900 540 Output: Urine 4153 877 1433 Laboratory Results - last 24 hr 01/18/18 01/18/18 05:12 05:12 Hgb 9.5 L Hct 27 L Plt Count 138 L MPV 8.5 INR (Anticoag Therapy) 1.18 H General- WN, WD, NAD, AO resting in chair comfortably LLE- Dressing removed. Incision C/D/I no erythema, drainage, warmth. Calf soft. +DF/PF, PT 2+, SITLT. Assessment: 62 y/o female s/p L TKA with removal of hardware by Dr. Bennett 01/16/2018. Plan: - D/C home today. - DVT prophylaxis- coumadin - Home nursing, PT - Follow up with Dr. Bennett within 10-14 days - H&H - stable - post-op IV ABX - completed
--- NOTE | 2018-01-19 00:17 | DS ---
AMENDED REPORT NOW INCLUDES COSIGNER DESIGNATION - ESIGNED BEFORE ADJUSTMENTS DISCHARGE SUMMARY: DATE OF ADMISSION: 01/16/18 DATE OF DISCHARGE: 01/18/18 ATTENDING PROVIDER: Johana Bennett MD * (DICTATED BY [place] WHYTE) CHIEF COMPLAINT: 1. Left knee osteoarthritis. 2. Asthma. DISCHARGE DIAGNOSES: 1. Status post left total knee arthroplasty. 2. Asthma. PROCEDURE: Left total knee arthroplasty. CONSULTATIONS: Physical Therapy, Occupational Therapy. BRIEF HISTORY: Ms. Waters is a 62-year-old female, who is admitted to [facility] on 01/16/18 with severe end-stage degenerative osteoarthritis of the left knee, who had failed conservative treatment and elected to undergo a left knee arthroplasty with Dr. Bennett on 01/16/18. HOSPITAL COURSE: Ms. Waters was admitted to the hospital on 01/16/18 where she underwent her left total knee arthroplasty. Postoperatively, she recovered on the short-stay unit. On postoperative day 1, her Rosas catheter was removed and she was able to urinate on her own. She advanced to regular diet with no difficulty and pain was controlled with p.o. Percocet and she was restarted on her normal medications. Labs and vital signs remained stable. She was able to weight bear as tolerated on the left lower extremity, advance appropriately with physical therapy and occupational therapy. DVT prophylaxis was Lovenox and Coumadin. By postop day 2, she was orthopedically and medically stable for discharge home with services. PHYSICAL EXAMINATION: Well nourished, well developed, in no acute distress, alert and oriented, resting in a chair comfortably. Temperature 98.3, pulse 84 , respirations 16, blood pressure 135/68. Left lower extremity: The dressing was removed and this was clean and dry. Incision was clean, dry, and intact with intact sutures with no erythema, drainage, or warmth. Her calf was soft. She was able to dorsiflex and plantarflex her foot. Sensation was grossly intact to light touch distally and she had 2+ DP pulse. LABORATORY DATA: Labs on date of discharge, hemoglobin 9.5, hematocrit 27, platelet 138, and INR of 1.18. RADIOGRAPHS: Postoperative radiographs from 01/16/18 showed the left knee replacement was in satisfactory positioning. DISCHARGE MEDICATIONS: 1. Vitamin C 500 mg. 2. Vitamin D 5000 International Units daily. 3. Lactobacillus 1 tablet every morning. 4. Percocet 5/325 one to two tablets q.4 to 6 hours as needed for pain. 5. Warfarin 2 mg tablets to be taken as prescribed. CONDITION ON DISCHARGE: Stable. DISCHARGE INSTRUCTIONS: Ms. Waters is a 62-year-old female, who is postoperative day 1 status post left total knee arthroplasty, which was uncomplicated. She is medically and orthopedically stable for discharge home with services. Labs and vital signs remained stable. She will take 8 mg of Coumadin , 01/18/18 and 8 mg tomorrow, 01/19/18. Her INR will be rechecked on 01/20/18 by visiting nurse services. She will remain weightbearing as tolerated on the left lower extremity. She will have home PT twice a week. She will take Percocet for pain control. She will take Colace as needed for constipation up to 3 times a day. She will follow up with Dr. Bennett in 10 to 14 days for incision check and suture removal. She was instructed to go immediately to the ER should she develop chest pain or shortness of breath. Should she develop fever, increasing pain, or redness, she will call our office immediately. All questions were answered today. [place] WHYTE [id number]/[facility] #: [id number] MTDD
== END 2018-01-18 14:15 | disposition home health service (06) | DRG 302 ==
LOC: AA 06:52 → SSU 14:52
PROVIDERS: ADMIT Orthopaedic Surgery Adult Reconstructive Orthopaedic Surgery; ATTEND Orthopaedic Surgery Adult Reconstructive Orthopaedic Surgery
PROC: 0QPC04Z Removal of Internal Fixation Device from Left Lower Femur, Open Approach (ICD-10-PCS; 2018-01-16)
PROC: 0QPH04Z Removal of Internal Fixation Device from Left Tibia, Open Approach (ICD-10-PCS; 2018-01-16)
PROC: 0SRD069 Replacement of Left Knee Joint with Oxidized Zirconium on Polyethylene Synthetic Substitute, Cemented, Open Approach (ICD-10-PCS; principal; 2018-01-16 09:00)
DX: M17.32 Unilateral post-traumatic osteoarthritis, left knee (principal); J45.909 Unspecified asthma, uncomplicated; M22.40 Chondromalacia patellae, unspecified knee; M17.11 Unilateral primary osteoarthritis, right knee; M85.862 Other specified disorders of bone density and structure, left lower leg; M25.762 Osteophyte, left knee; M25.552 Pain in left hip; M25.551 Pain in right hip; M25.462 Effusion, left knee; Z79.01 Long term (current) use of anticoagulants; Z88.0 Allergy status to penicillin; Z85.828 Personal history of other malignant neoplasm of skin; Z87.891 Personal history of nicotine dependence; Z82.3 Family history of stroke; Z80.3 Family history of malignant neoplasm of breast; Z82.5 Family history of asthma and other chronic lower respiratory diseases; Z82.49 Family history of ischemic heart disease and other diseases of the circulatory system; Z82.0 Family history of epilepsy and other diseases of the nervous system
CPT/HCPCS: 36415; 80048; 85014; 85018; 85049; 85610; 88300; 88305; 88311; 97530; A9270-GY; C1776; J1100; J1650; J1885; J2250; J2270; J2704; J2795; J3010

== ENCOUNTER 2018-04-19 11:49 | Emergency (ER) | payer BC ==
[2018-04-19 12:59] VITALS: BP 150/80
--- NOTE | 2018-04-19 13:53 | UC ---
Skin Complaint HPI - HPI Summary HPI Summary: per brim shaper: "c/o getting a wood splinter in R hand between thumb and index finger. Still feels like something in there. Had total knee arthoplasty 3 months ago" & concerned about getting an infection. -incident occurred just prior to arrival. -she was able to get part of it off, but the remainder stayed intact. - History of Current Complaint Chief Complaint: UCSkin Time Seen by Provider: 04/19/18 13:29 Stated Complaint: RIGHT HAND SKIN COMPLAINT Pain Intensity: 0 - Allergy/Home Medications Allergies/Adverse Reactions: Allergies Allergy/AdvReac Type Severity Reaction Status Date / Time Penicillins Allergy Hives Verified 04/19/18 12:53 Review of Systems Constitutional: Negative Skin: Other - splinter Eyes: Negative ENT: Negative Respiratory: Negative Cardiovascular: Negative Gastrointestinal: Negative Genitourinary: Negative Motor: Negative Neurovascular: Negative Musculoskeletal: Negative Neurological: Negative Psychological: Negative Is Patient Immunocompromised?: No All Other Systems Reviewed And Are Negative: Yes PMH/Surg Hx/FS Hx/Imm Hx Previously Healthy: Yes - Surgical History Surgical History: Yes Surgery Procedure, Year, and Place: 2001 RIGHT CARPAL TUNNEL RELEASE, [facility]. LEFT KNEE ACL RECONSTRUCTION, [facility]. MOHS SURGERY WITH RECONSTRUCTION X 5, [place]. TKA L - Family History Known Family History: Positive: Hypertension - Social History Alcohol Use: None Substance Use Type: None Smoking Status (MU): Former Smoker Type: Cigarettes Amount Used/How Often: 1 PPD X 30 YEARS Have You Smoked in the Last Year: No When Did the Patient Quit Smoking/Using Tobacco: YEARS AGO - Immunization History Most Recent Influenza Vaccination: 2017 Most Recent Pneumonia Vaccination: HAS HAD Physical Exam Triage Information Reviewed: Yes Appearance: Well-Appearing, No Pain Distress, Well-Nourished Vital Signs: Initial Vital Signs Temp 98 F 04/19/18 12:54 Pulse 75 04/19/18 12:54 Resp 16 04/19/18 12:54 BP 150/80 04/19/18 12:54 Pulse Ox 100 04/19/18 12:54 Vital Signs Reviewed: Yes Eye Exam: Normal Respiratory: Positive: Lungs clear Cardiovascular: Positive: RRR Musculoskeletal Exam: Normal Neurological Exam: Normal Psychological Exam: Normal Skin: Positive: Other - rt flexor hand with small splinter in between thumb and 2nd digit. no streaks, no dc. no bleeding. attempted to remove w/ pressure, forceps and very mild superficial manipulation w/ a 30 G needle w/o success. pt tolerated well. no bleeding. Course/Dx - Course Course Of Treatment: Splinter should rid itself. enc warm soaks. triple abx ointment and keep covered. watch for redness, streaks or purulent dc. she understood me well and is agreeable w/ plan. she understands that further manipulation is not indicated at this time for superfical FB. - Differential Diagnoses - Skin Complaint Differential Diagnoses: Other - splinter - Diagnoses Provider Diagnoses: right hand soft tissue superfial FB. Discharge - Sign-Out/Discharge Documenting (check all that apply): Post-Discharge Follow Up All imaging exams completed and their final reports reviewed: No Studies - Discharge Plan Condition: Stable Disposition: HOME Patient Education Materials: Soft Tissue Foreign Body (ED) Referrals: Miesha Mg PA [Primary Care Provider] - 6 Days Additional Instructions: Watch for any signs of infection. Use triple antibiotic ointment and keep it covered. Use warm soaks. - Billing Disposition and Condition Condition: STABLE Disposition: Home
== END 2018-04-19 14:21 | disposition home or self-care (01) ==
LOC: UCCORT 11:49
DX: W45.8XXA Other foreign body or object entering through skin, initial encounter (principal); Y93.9 Activity, unspecified; Y92.9 Unspecified place or not applicable; S60.551A Superficial foreign body of right hand, initial encounter; Z88.0 Allergy status to penicillin
CPT/HCPCS: 99211; G0463

== ENCOUNTER 2019-02-24 08:45 | Day surgery (SDC) | payer BC ==
[~2019-02-24 08:45] MED LIST changes: -Acetaminophen IV 1GM/100ML * 1,000 MG/100 ML VIAL IVPB ONE; -Buffered Lidocaine 0.9% SYRIN* 5 ML/SYR SYRINGE INTRADERM ONE; +Buffered Lidocaine 1% SYRIN* 1 ML/SYRINGE INTRADERM ONE; -Dexamethasone IV* 4 MG/ML 1 ML (4 MG) IV SLOW PU ONE; -Famotidine IV* 10 MG/ML 2 ML (20 mg) IV ONE; -Gabapentin CAP(*) 300 MG PO ONE; +Lactated Ringers 1000 ML Bag* 1,000 ML IV SCH; +Lidocaine 1% INJ* 10 MG/ML 30 ML SDV ONE; -Ondansetron ODT TAB* 4 MG PO ONE; -celeCOXIB CAP* 200 MG PO ONE
[2019-02-24] MEDS ORDERED: Propofol* 10 MG/ML 20 ML BTL ONE (11:05)
[2019-02-24] MEDS ORDERED: Lidocaine 2% PF * 5 ML VIAL ONE (11:05)
[2019-02-24] MEDS ORDERED: Naloxone* 0.4 MG/ML 1 ML VIAL IV PRN (11:13)
[2019-02-24] MEDS ORDERED: Midazolam* 1 MG/ML 2 ML VIAL (2 MG) ONE (11:31)
[2019-02-24 12:18] VITALS: BP 120/60
--- NOTE | 2019-02-24 13:17 | OP ---
DATE OF OPERATION: 02/24/19 [facility] DATE OF : 53 SURGEON: Chelsey Sagastume MD CEMENT TRUCK DRIVER: KY Wang ANESTHESIA: Local MAC. PRE-OP DIAGNOSIS: Left ring finger mass. POST-OP DIAGNOSIS: Left ring finger mass. OPERATIVE PROCEDURE: Removal of left ring finger mass. ESTIMATED BLOOD LOSS: Zero. TOURNIQUET TIME: Approximately 15 minutes. INDICATIONS FOR PROCEDURE: Mine Waters is a 63-year-old female who has a painful mucous cyst on the dorsal aspect of her left ring finger DIP joint. She presents for removal. DESCRIPTION OF PROCEDURE: The patient was brought to the operating room, was given a sedation anesthetic and a local infiltration of 10 cc of 1% plain lidocaine as a digital block to the left ring finger. The skin of her left hand and forearm was prepped and draped in the usual sterile fashion. The hand and forearm were exsanguinated and the tourniquet elevated to 250 mmHg. An H- shaped incision was made overlying the mass and we carefully dissected the skin flap away from the ganglion cyst. The cyst was removed and sent for pathology. Both sides of the extensor tendon were incised longitudinally and the underlying osteophytes were removed with a rongeur. The wound was irrigated and the skin edges reapproximated with 4-0 nylon suture. The wound was dressed with Xeroform, 4x4, Webril, and Coban. The patient tolerated the procedure well and was brought to the recovery room in good condition. [id number]/[facility] #: [id number] [facility]
== END 2019-02-24 12:22 | disposition home or self-care (01) ==
LOC: OREAST 08:45
PROVIDERS: ATTEND Orthopaedic Surgery
DX: M67.442 Ganglion, left hand (principal); Z87.891 Personal history of nicotine dependence
CPT/HCPCS: 88304; J2250; J2704

== ENCOUNTER 2019-05-09 13:36 | Emergency (ER) | payer MEDICARE, BC ==
--- OUTSIDE RECORDS SUMMARY | 2019-05-09 13:54 | XMS REPORT | Continuity of Care Document ---
:1955 External Reference #:[id number] Author Name Chelsey Sagastume M.D. 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 Onset: 11/18/2017 Iliotibial band friction syndrome Johana Bennett M.D. Onset: 08/29/2018 Localized, primary osteoarthritis of the pelvic Johana Bennett M.D. Onset: 10/2017 region and thigh Arthroplasty of knee Johana Bennett M.D. Onset: 05/14/2018 Social History Type Date Description Comments Sex Unknown ETOH Use Denies alcohol use Tobacco Use Start: Unknown Patient has never smoked Smoking Status Reviewed: 03/30/19 Patient has never smoked Exercise Type/Frequency Exercises regularly Allergies, Adverse Reactions, Alerts Active Allergies Reaction Severity Comments Date Penicillin 10/05/2015 Medications Active Medications SIG Qnty Indications Ordering Provider Date Tramadol HCL 1 tab by mouth 15tabs Chelsey Sagastume, 02/24/2019 50mg every 4-6 hours M.D. Tablets as needed pain Clindamycin HCL take two tabs 2caps Z47.1 Johana Bennett M.D. 03/14/2018 300mg one hour prior Capsules to dental work Ibuprofen as needed Unknown Medications Administered in Office Medication SIG Qnty Indications Ordering Provider Date Celestone 3 mg and 3mg Johana Bennett M.D. 08/29/2018 Injection No Injection Chelsey Sagastume M.D. 04/23/2018 Injection Depomedrol 40MG TREMAYNE Wang 04/04/2016 Injection Depomedrol 40MG Chelsey Sagastume M.D. 10/05/2015 Injection Depomedrol 80MG Thomas Newton M.D. 02/07/2011 Injection Immunizations Description No Information Available Vital Signs Date Vital Result Comment 03/30/2019 10:56am Height 66 inches 5'6" Weight 176.00 lb BP Systolic 144 mmHg BP Diastolic 92 mmHg Body Temperature 97.4 F BMI (Body Mass Index) 28.4 kg/m2 03/09/2019 10:39am Height 66 inches 5'6" Weight 173.00 lb BP Systolic 116 mmHg BP Diastolic 70 mmHg Respiratory Rate 20 /min Body Temperature 97.4 F Pain Level 0 BMI (Body Mass Index) 27.9 kg/m2 Results Test Date Facility Test Result H/L Range Note Laboratory test 02/24/2019 [facility] Surgical SEE RESULT 1 , [address] [place] [address] [phone] 1 [id number] 2 SEE RESULT BELOW Name: RAMÓN WATERSEA : [address]: Chelsey Sagastume MD Acct: [id number] Unit: [id number] AGE: 63 Location: [facility] Re02/24/19 SEX: F Status: DEP SDC SPEC: [id number] GEM: 02/24/19-[address] [facility] [address]: Chelsey Sagastume MD REQ: [id number] RECD: 02/24/19 STATUS: SOUT _ ORDERED: LEVEL 3 COMMENTS: [id number] FINAL DIAGNOSIS Soft tissue, left ring finger, excision: -- Fragments compatible with ganglion cyst. -- Osteocartilaginous exostosis. PRE-OPERATIVE DIAGNOSIS Mucous cyst left ring finger GROSS DESCRIPTION The specimen is received in formalin labeled, Ganglionic and Osteophytes Left Ring Finger, and consists of a 0.7 x 0.6 x 0.2 cm aggregate of white-pink irregular rubbery fibrous tissue fragments and a small amount of possible bone. Entirely submitted, one cassette. Signed by and Reported on: Hermes Phillip MD [address] END OF REPORT DEPARTMENT OF PATHOLOGY, [address] [place] [address] Hermes Phillip M.D. Director [facility] # [id number] Procedures Date Code Description Status 02/24/2019 08329 Excision Tendon Sheath Ganglion /Or Joint Capsule Hand Or Completed Finger 02/24/2019 46285 Excision Tendon Sheath Ganglion /Or Joint Capsule Hand Or Completed Finger Medical Devices Description No Information Available Encounters Type Date Location Provider Dx Diagnosis Office Visit 02/19/2019 Orthopedic Chelsey Sagastume, M67.442 Ganglion, left 10:30a [facility] hand Assessments Date Code Description Provider 03/09/2019 M67.442 Ganglion, left hand Viv Case, [facility] 03/09/2019 Z48.02 Encounter for removal of sutures Viv Case, [facility] 02/24/2019 M67.442 Ganglion, left hand Viv Case, [facility] 02/24/2019 Susan7.442 Ganglion, left hand Chelsey Sagastume M.D. 02/19/2019 Susan7.442 Ganglion, left hand Chelsey Sagastume M.D. Plan of Treatment No Information Available Functional Status Description No Information Available Mental Status Description No Information Available Referrals Description No Information Available
[2019-05-09 14:19] VITALS: BP 149/80
--- NOTE | 2019-05-09 16:04 | UC ---
UC General HPI - HPI Summary HPI Summary: pt is on day 7 of worsening sinus pain, pressure and congestion with thick green drainage. she is self txing with Mucinex and Dayquil but continues to be worse. no fever. - History of Current Complaint Chief Complaint: UCGeneralIllness Stated Complaint: CONGESTION Time Seen by Provider: 05/09/19 15:58 Hx Obtained From: Patient Onset/Duration: Gradual Onset Timing: Constant Pain Intensity: 3 Associated Signs & Symptoms: Positive: Cough. Negative: Chest Pain, SOB, Wheezing - Allergy/Home Medications Allergies/Adverse Reactions: Allergies Allergy/AdvReac Type Severity Reaction Status Date / Time Penicillins Allergy Hives Verified 05/09/19 14:20 Home Medications: Home Medications guaiFENesin ER TAB [Mucinex*] 1,200 mg PO BID 05/09/19 [History Confirmed ] PMH/Surg Hx/FS Hx/Imm Hx Previously Healthy: Yes - Surgical History Surgical History: Yes Surgery Procedure, Year, and Place: 2000 RIGHT CARPAL TUNNEL RELEASE, [facility]. LEFT KNEE ACL RECONSTRUCTION, [facility]. MOHS SURGERY WITH RECONSTRUCTION X 5, [place]. TOTAL LEFT KNEE REPLACEMENT-2018. CARPOMETACARPOARTHROPLASTY RIGHT THUMB-[facility] - Family History Known Family History: Positive: Hypertension - Social History Alcohol Use: None Substance Use Type: None Smoking Status (MU): Former Smoker Type: Cigarettes Amount Used/How Often: 1 PPD X 30 YEARS Have You Smoked in the Last Year: No When Did the Patient Quit Smoking/Using Tobacco: YEARS AGO - Immunization History Most Recent Influenza Vaccination: 2017 Most Recent Pneumonia Vaccination: HAS HAD Review of Systems All Other Systems Reviewed And Are Negative: No Constitutional: Negative: Fever, Chills Eyes: Negative: Drainage, Eye Redness ENT: Positive: Nasal Discharge, Sinus Congestion, Sinus Pain/Tenderness. Negative: Sore Throat, Ear Ache Respiratory: Positive: Cough. Negative: Shortness Of Breath Cardiovascular: Negative: Palpitations, Chest Pain Physical Exam Triage Information Reviewed: Yes Appearance: Well-Appearing Vital Signs: Initial Vital Signs Temp 98.3 F 05/09/19 14:16 Pulse 85 05/09/19 14:16 Resp 16 05/09/19 14:16 BP 149/80 05/09/19 14:16 Pulse Ox 98 05/09/19 14:16 Vital Signs Reviewed: Yes Eyes: Positive: Conjunctiva Clear ENT: Positive: Pharynx normal, Nasal congestion, TMs normal, Sinus tenderness. Negative: Nasal drainage Neck: Positive: Supple, Nontender, No Lymphadenopathy Respiratory: Positive: Lungs clear, Normal breath sounds, No respiratory distress Cardiovascular: Positive: RRR, No Murmur Abdomen Description: Positive: Nontender Musculoskeletal: Positive: ROM Intact Neurological: Positive: Alert Psychological: Positive: Age Appropriate Behavior Skin Exam: Normal Course/Dx - Course Course Of Treatment: No hx HTN. will f/u pcp for recheck. - Diagnoses Provider Diagnosis: Sinusitis Discharge ED - Sign-Out/Discharge Documenting (check all that apply): Patient Departure All imaging exams completed and their final reports reviewed: No Studies - Discharge Plan Condition: Stable Disposition: HOME Prescriptions: DOXYcycline CAP(*) [DOXYcycline 100MG CAP(*)] 100 mg PO BID 10 Days #20 cap Patient Education Materials: Sinusitis (ED), Hypertension (ED) Referrals: Patricia Means MD [Primary Care Provider] - Additional Instructions: FOLLOW UP IN 7-10 DAYS FOR A RECHECK INCLUDING YOUR BLOOD PRESSURE. FOLLOW UP SOONER IF WORSE. - Billing Disposition and Condition Condition: STABLE Disposition: Home
== END 2019-05-09 16:10 | disposition home or self-care (01) ==
LOC: UCCORT 13:36
DX: J32.9 Chronic sinusitis, unspecified (principal); Z88.0 Allergy status to penicillin; Z87.891 Personal history of nicotine dependence
CPT/HCPCS: 99212; G0463

== ENCOUNTER 2022-05-24 09:20 | Observation (INO) ==
[~2022-05-24 09:20] MED LIST changes: +Buffered Lidocaine 1% SYRIN 1 ml INTRADERM ONE; -Buffered Lidocaine 1% SYRIN* 1 ML/SYRINGE INTRADERM ONE; -Lactated Ringers 1000 ML Bag* 1,000 ML IV SCH; +Lactated Ringers 1000 ml BAG 1,000 ML IV SCH; -Lidocaine 1% INJ* 10 MG/ML 30 ML SDV ONE
[2022-05-24] MEDS ORDERED: fentaNYL 100 mcg/2 ml 50 MCG/ML VIAL ONE ×2 (09:33→12:18)
[2022-05-24] MEDS ORDERED: Midazolam 5 mg/5 ml VIAL 1 mg/ml 5 ml VIAL (5 mg) ONE ×2 (09:33→12:18)
[2022-05-24] MEDS ORDERED: Ondansetron 4 mg VIAL 2 MG/ML 2 ml VIAL ONE (09:33)
[2022-05-24] MEDS ORDERED: Propofol 0 MG/0 ML BTL ONE (09:33)
[2022-05-24] MEDS ORDERED: Dexamethasone IV 4 MG/ML VIAL 1 ml VIAL ONE (09:33)
[2022-05-24] MEDS ORDERED: Lidocaine 2% PF 5 ML VIAL ONE ×4 (09:33→13:08)
[2022-05-24] MEDS ORDERED: Clindamycin 900 MG/D5W BAG 900 MG/50 ML BAG IVPB ONE (09:50)
[2022-05-24] MEDS ORDERED: Propofol 10 MG/ML 20 ML BTL ONE ×5 (11:20→15:14)
[2022-05-24] MEDS ORDERED: ROPIVACAINE 5 MG/ML 30 ML BTL (0.5%) ONE ×2 (12:19→12:46)
[2022-05-24] MEDS ORDERED: Acetaminophen IV 1 GM/100ML 1,000 MG/100 ML BAG IV ONE (13:50)
[2022-05-24] MEDS ORDERED: fentaNYL 100 mcg/2 ml 50 MCG/ML VIAL IV PRN (14:10)
[2022-05-24] MEDS ORDERED: Naloxone 0.4 mg VIAL 0.4 mg/ml 1 ml VIAL IV PRN (14:10)
[2022-05-24] MEDS ORDERED: HYDROmorphone 1 MG/1 ML SYRINGE IV PRN (14:10)
[2022-05-24] MEDS ORDERED: Ondansetron 4 mg VIAL 2 MG/ML 2 ml VIAL IV PRN ×2 (14:10→15:56)
[2022-05-24] MEDS ORDERED: Phenylephrine 40 mcg/mL 10mL (400mcg) SYRINGE ONE (14:26)
[2022-05-24] MEDS ORDERED: Ondansetron ODT 4 mg TAB 4 MG TAB PO PRN (15:56)
[2022-05-24] MEDS ORDERED: Magnesium Hydroxide LIQ 30 ML UDC PO PRN (15:56)
[2022-05-24] MEDS ORDERED: Morphine 2 MG/ML SYRINGE IV PRN (15:56)
[2022-05-24] MEDS ORDERED: Lactulose 30 ml UDC PO PRN (15:56)
[2022-05-24] MEDS ORDERED: Lactated Ringers 1000 ml BAG 1,000 ML IV SCH (16:00)
[2022-05-24] MEDS: Magnesium Hydroxide LIQ 30 ML UDC PO SCH (21:22)
[2022-05-24] MEDS: Clindamycin 600 MG/D5W BAG 600 MG/50 ML BAG IV SCH (21:48)
[2022-05-25] MEDS: Clindamycin 600 MG/D5W BAG 600 MG/50 ML BAG IV SCH ×2 (05:19→13:16)
[2022-05-25 06:50] LABS: Hematocrit 31 % (35-47); Hemoglobin 10.5 g/dL (12.0-16.0); Mean Platelet Volume 9.1 fL (7.4-10.4); Platelet Count 174 10^3/uL (150-450)
[2022-05-25 07:08] LABS: Calcium 8.6 mg/dL (8.6-10.3); Potassium 4.3 mmol/L (3.5-5.0); eGFR CKD-EPI 92.6 (>60)
[2022-05-25] MEDS ORDERED: Vitamin THERAPEUTIC TAB PO SCH (09:00)
[2022-05-25] MEDS: Magnesium Hydroxide LIQ 30 ML UDC PO SCH (10:06)
[2022-05-25 12:22] VITALS: BP 108/72
== END 2022-05-25 16:00 | disposition home or self-care (01) ==
LOC: AA 09:20 → INTOOBSV 09:20 → SSU 15:56
PROVIDERS: ADMIT Orthopaedic Surgery Adult Reconstructive Orthopaedic Surgery; ATTEND Orthopaedic Surgery Adult Reconstructive Orthopaedic Surgery